=== PATIENT | male | born 1980 | race Caucasian/White ===

== ENCOUNTER 2020-10-25 19:13 | Emergency (ER) | payer SELFPAY ==
[~2020-10-25] VITALS: Ht 199 cm; Wt 182.7 kg
[2020-10-25 20:22] LABS: BASOPHILS % (AUTO) 1 % (0-10); EOSINOPHILS % (AUTO) 3 % (0-10); HEMATOCRIT 37 % (40-54); HEMOGLOBIN 12.7 G/DL (13.3-17.7); LYMPHOCYTES % (AUTO) 20 % (12-44); MEAN CORPUSCULAR HEMOGLOBIN 30 PG (25-34); MEAN CORPUSCULAR HGB CONC 34 G/DL (32-36); MEAN CORPUSCULAR VOLUME 87 FL (80-99); MEAN PLATELET VOLUME 11.6 FL (7.4-10.4); MONOCYTES % (AUTO) 9 % (0-12); NEUTROPHILS # (AUTO) 6.2 X 10^3 (1.8-7.8); NEUTROPHILS % (AUTO) 67 % (42-75); PLATELET COUNT 259 10^3/uL (130-400); WHITE BLOOD COUNT 9.3 10^3/uL (4.3-11.0)
[2020-10-25 20:23] LABS: BASOPHILS # (AUTO) 0.1 10^3/uL (0.0-0.1); EOSINOPHILS # (AUTO) 0.3 10^3/uL (0.0-0.3); LYMPHOCYTES # (AUTO) 1.9 X 10^3 (1.0-4.0); MONOCYTES # (AUTO) 0.8 X 10^3 (0.0-1.0)
[2020-10-25 20:34] LABS: POTASSIUM 4.8 MMOL/L (3.6-5.0)
[2020-10-25 20:35] LABS: ALBUMIN 3.1 GM/DL (3.2-4.5); BILIRUBIN,TOTAL 0.2 MG/DL (0.1-1.0); CALCIUM 9.5 MG/DL (8.5-10.1); CREATININE SERUM 1.46 MG/DL (0.60-1.30)
[2020-10-25 20:40] LABS: ERYTHROCYTE SEDIMENTATION RATE 79 MM/HR (0-15)
[2020-10-25 21:38] LABS: EOSINOPHILS % (MANUAL) 5 %; LYMPHOCYTES % (MANUAL) 20 %; MONOCYTES % (MANUAL) 3 %; NEUTROPHILS % (MANUAL) 72 %
[2020-10-25] MEDS ORDERED: AUGMENTIN 875 MG TAB (AMOXICILLIN/CLAVULANATE) PO ONE (22:00)
--- NOTE | 2020-10-25 22:04 | ED Lower Extremity ---
General Chief Complaint: Lower Extremity Stated Complaint: RT FOOT PAIN/SWELLING Nursing Triage Note: pt states back at the end of august he stepped on something, thinks it may have have been a nail, with his right great toe and has been swollen since. pt went to urgent care and had xrays performed Nursing Sepsis Screen: No Definite Risk Source: patient Exam Limitations: no limitations History of Present Illness Date Seen by Provider: Oct 25, 2020 Time Seen by Provider: 19:00 Initial Comments currently unmedicated who presents with right great toe foot ulcer with cellulitis for the past 2 months. Patient recently relocated from [place] and is currently without primary care. He was evaluated at [facility] prior to ED ED arrival and had an x-ray obtained. He was referred to ED for additional evaluation. Patient does not have fever chills, nausea vomiting or sweats. He is not dizzy or lightheaded. He has not been on any antibiotics or sought medical evaluation for his current issues. He does have a new patient appointment in 3 days with a PCP locally. Onset: other Pain/Injury Location: right 1st toe Method of Injury: other Modifying Factors: Improves With Other Allergies and Home Medications Allergies Coded Allergies: No Known Drug Allergies (Unverified , 10/25/20) Patient Home Medication List Home Medication List Reviewed: Yes Review of Systems Constitutional: see HPI EENTM: see HPI Respiratory: see HPI Cardiovascular: see HPI Gastrointestinal: see HPI Genitourinary: see HPI Musculoskeletal: see HPI Skin: see HPI Psychiatric/Neurological: See HPI All Other Systems Reviewed Negative Unless Noted: Yes Past Cstgszi-Nrivrc-Yspmsb Hx Past Med/Social Hx: Reviewed Nursing Past Med/Soc Hx Patient Social History Alcohol Use: Denies Use Smoking Status: Never a Smoker 2nd Hand Smoke Exposure: No Recent Infectious Disease Expo: No Recent Hopitalizations: No Seasonal Allergies Seasonal Allergies: No Past Medical History Surgeries: Yes Orthopedic Respiratory: No Cardiac: No Neurological: No Genitourinary: No Gastrointestinal: No Musculoskeletal: No Endocrine: No HEENT: No Cancer: No Psychosocial: No Integumentary: No Blood Disorders: No Physical Exam Vital Signs Vital Signs - First Documented 10/25/20 19:27 Temp 36.0 Pulse 96 Resp 18 B/P (MAP) 192/98 (129) Pulse Ox 97 O2 Delivery Room Air Capillary Refill : Less Than 3 Seconds Height, Weight, BMI Height: '" Weight: lbs. oz. kg; 46.00 BMI Method: General Appearance: WD/WN HEENT: PERRL/EOMI, normal ENT inspection Neck: normal inspection Cardiovascular: normal peripheral pulses, regular rate, rhythm Respiratory: chest non-tender, lungs clear, normal breath sounds Gastrointestinal: non tender, soft Hips: bilateral hip normal inspection Legs: bilateral leg normal inspection Knees: bilateral knee normal inspection Feet: right foot soft tissue tenderness (Right great toe pad ulcer with desquamation and waxy skin of the distal third of toe with cellulitis extending to proximal toe with min forefoot swelling and tenderness on exam.), right foot swelling Progress/Results/Core Measures Results/Orders Lab Results Laboratory Tests Test 10/25/20 20:10 Range/Units White Blood Count 9.3 4.3-11.0 10^3/uL Red Blood Count 4.29 L 4.35-5.85 10^6/uL Hemoglobin 12.7 L 13.3-17.7 G/DL Hematocrit 37 L 40-54 % Mean Corpuscular Volume 87 80-99 FL Mean Corpuscular Hemoglobin 30 25-34 PG Mean Corpuscular Hemoglobin Concent 34 32-36 G/DL Red Cell Distribution Width 12.7 10.0-14.5 % Platelet Count 259 130-400 10^3/uL Mean Platelet Volume 11.6 H 7.4-10.4 FL Immature Granulocyte % (Auto) 0 % Neutrophils (%) (Auto) 67 42-75 % Lymphocytes (%) (Auto) 20 12-44 % Monocytes (%) (Auto) 9 0-12 % Eosinophils (%) (Auto) 3 0-10 % Basophils (%) (Auto) 1 0-10 % Neutrophils # (Auto) 6.2 1.8-7.8 X 10^3 Lymphocytes # (Auto) 1.9 1.0-4.0 X 10^3 Monocytes # (Auto) 0.8 0.0-1.0 X 10^3 Eosinophils # (Auto) 0.3 0.0-0.3 10^3/uL Basophils # (Auto) 0.1 0.0-0.1 10^3/uL Immature Granulocyte # (Auto) 0.0 0.0-0.1 10^3/uL Neutrophils % (Manual) 72 % Lymphocytes % (Manual) 20 % Monocytes % (Manual) 3 % Eosinophils % (Manual) 5 % Erythrocyte Sedimentation Rate 79 H 0-15 MM/HR Sodium Level 135 135-145 MMOL/L Potassium Level 4.8 3.6-5.0 MMOL/L Chloride Level 101 98-107 MMOL/L Carbon Dioxide Level 27 21-32 MMOL/L Anion Gap 7 5-14 MMOL/L Blood Urea Nitrogen 27 H 7-18 MG/DL Creatinine 1.46 H 0.60-1.30 MG/DL Estimat Glomerular Filtration Rate 53 BUN/Creatinine Ratio 18 Glucose Level 396 H 70-105 MG/DL Calcium Level 9.5 8.5-10.1 MG/DL Corrected Calcium 10.2 H 8.5-10.1 MG/DL Total Bilirubin 0.2 0.1-1.0 MG/DL Aspartate Amino Transf (AST/SGOT) 12 5-34 U/L Alanine Aminotransferase (ALT/SGPT) 19 0-55 U/L Alkaline Phosphatase 124 40-136 U/L C-Reactive Protein 3.51 H <0.50 MG/DL Total Protein 7.0 6.4-8.2 GM/DL Albumin 3.1 L 3.2-4.5 GM/DL My Orders Orders - THOMAS OGDEN DO Cbc And Manual Diff (10/25/20 20:03) Comprehensive Metabolic Panel (10/25/20 20:03) Erythrocyte Sedimentation Rate (10/25/20 20:03) Hs C Reactive Protein (10/25/20 20:10) Crp Fs (10/25/20 20:10) Vital Signs/I&O 10/25/20 19:27 Temp 36.0 Pulse 96 Resp 18 B/P (MAP) 192/98 (129) Pulse Ox 97 O2 Delivery Room Air Blood Pressure Mean: 129 Departure Communication (Admissions) Right foot/great toe x-ray. Possible early left of right foot distal phalanx Patient's labs reviewed. Longstanding diabetes with noncompliance and chronic right great toe foot infection. First dose of antibiotics given. Will place on antibiotics and start on low-dose Metformin. Patient instructed to follow-up with PCP on Wednesday for reevaluation and further management Impression Primary Impression: Chronic ulcer of right great toe Additional Impressions: Cellulitis of toe of right foot Hyperglycemia H/O medication noncompliance Disposition: HOME, SELF-CARE Condition: Stable Departure-Patient Inst. Decision time for Depature: 22:04 Referrals: NO,LOCAL PHYSICIAN (PCP/Family) Primary Care Physician Patient Instructions: Diabetic Foot Ulcer (DC) Add. Discharge Instructions: Please take newly prescribed medications as directed and follow-up with your PCP to establish as a new primary care patient on Wednesday as scheduled. All discharge instructions reviewed with patient and/or family. Voiced understanding. Scripts Metformin HCl (Metformin HCl) 500 Mg Tablet 500 MG PO BID, #60 TAB Prov: THOMAS OGDEN DO 10/25/20 Amoxicillin/Potassium Clav (Augmentin 875-125 Tablet) 1 Each Tablet 1 EACH PO BID, #30 TAB 0 Refills Prov: THOMAS OGDEN DO 10/25/20 THOMAS OGDEN DO Oct 25, 2020 22:04
[2020-10-25] MEDS ORDERED: METF-397 PO (22:05)
[2020-10-25] MEDS ORDERED: AMOX-358 PO (22:05)
[2020-10-25 22:10] VITALS: BP 192/98
== END 2020-10-25 22:10 | disposition home or self-care (01) ==
LOC: ER FS 19:14
DX: L97.519 Non-pressure chronic ulcer of other part of right foot with unspecified severity (principal); L03.031 Cellulitis of right toe; R73.9 Hyperglycemia, unspecified; Z91.19 Patient's noncompliance with other medical treatment and regimen
CPT/HCPCS: 36415; 80053; 85007; 85027; 85652; 86141

== ENCOUNTER → 2020-11-11 | Outpatient (CLI) | payer OTHER ==
[~2020-11-11] MED LIST: AMOX-358 PO; METF-397 PO
== END ==
LOC: WOUNDCARE 13:26
PROVIDERS: ATTEND Surgery
DX: E11.621 Type 2 diabetes mellitus with foot ulcer (principal); E11.42 Type 2 diabetes mellitus with diabetic polyneuropathy; L97.514 Non-pressure chronic ulcer of other part of right foot with necrosis of bone; M86.471 Chronic osteomyelitis with draining sinus, right ankle and foot; E11.65 Type 2 diabetes mellitus with hyperglycemia
CPT/HCPCS: 11042; 87070; 87077; 87205; G0463

== ENCOUNTER → 2020-11-27 | Outpatient (CLI) | payer OTHER ==
--- NOTE | 2020-11-27 16:58 | Diagnostic Imaging Report ---
EXAMINATION: Right foot at 4:30 p.m. INDICATION: Right foot necrosis. Three views were obtained. There are no prior studies available for comparison. There is an irregular broad fracture line extending through the head and neck of the proximal phalanx of the great toe. This may represent a pathologic fracture secondary to osteomyelitis as much of the distal phalanx of the great toe has been eroded. There is also generalized edema of the soft tissues in this area. There is no fracture or acute bony abnormality noted otherwise. There is moderate degenerative disease of the phalanges and the midfoot. The Lisfranc joint was not well-visualized but appears to be stable. The soft tissues are otherwise unremarkable for an acute abnormality. Vascular calcifications are seen anterior and posterior to the distal tibia and fibula. IMPRESSION: 1. There is bony destruction of the distal phalanx of the great toe and there is a broad irregular fracture line extending through the head and neck of the proximal phalanx of the great toe. These findings are most likely secondary to osteomyelitis. If further imaging is desired, then MRI would be recommended. 2. There is no acute bony abnormality appreciated otherwise. Dictated by: Dictated on workstation # [id number]
== END ==
LOC: RAD FS 16:20
PROVIDERS: ATTEND Surgery
DX: E11.621 Type 2 diabetes mellitus with foot ulcer (principal); L97.514 Non-pressure chronic ulcer of other part of right foot with necrosis of bone; E11.42 Type 2 diabetes mellitus with diabetic polyneuropathy; M86.471 Chronic osteomyelitis with draining sinus, right ankle and foot; E11.65 Type 2 diabetes mellitus with hyperglycemia
CPT/HCPCS: 73630

== ENCOUNTER → 2020-11-28 | Outpatient (CLI) | payer OTHER | LOC: WOUNDCARE 15:24 | PROVIDERS: ATTEND Surgery | DX: E11.621 Type 2 diabetes mellitus with foot ulcer (principal); E11.42 Type 2 diabetes mellitus with diabetic polyneuropathy; I96 Gangrene, not elsewhere classified; L97.514 Non-pressure chronic ulcer of other part of right foot with necrosis of bone; M86.471 Chronic osteomyelitis with draining sinus, right ankle and foot; E11.65 Type 2 diabetes mellitus with hyperglycemia | CPT/HCPCS: 11042; G0463 ==

== ENCOUNTER → 2020-12-05 | Outpatient (CLI) | payer OTHER | LOC: WOUNDCARE 15:22 | PROVIDERS: ATTEND Surgery | DX: E11.621 Type 2 diabetes mellitus with foot ulcer (principal); I96 Gangrene, not elsewhere classified; E11.42 Type 2 diabetes mellitus with diabetic polyneuropathy; L97.514 Non-pressure chronic ulcer of other part of right foot with necrosis of bone; M86.471 Chronic osteomyelitis with draining sinus, right ankle and foot; E11.65 Type 2 diabetes mellitus with hyperglycemia | CPT/HCPCS: 11044; G0463 ==

== ENCOUNTER → 2020-12-12 | Outpatient (CLI) | payer OTHER | LOC: WOUNDCARE 14:15 | PROVIDERS: ATTEND Surgery | DX: E11.621 Type 2 diabetes mellitus with foot ulcer (principal); I96 Gangrene, not elsewhere classified; E11.42 Type 2 diabetes mellitus with diabetic polyneuropathy; M86.471 Chronic osteomyelitis with draining sinus, right ankle and foot; E11.65 Type 2 diabetes mellitus with hyperglycemia; L97.514 Non-pressure chronic ulcer of other part of right foot with necrosis of bone | CPT/HCPCS: 11044; G0463 ==

== ENCOUNTER → 2020-12-24 | Outpatient (CLI) | payer OTHER ==
[2020-12-24 16:21] LABS: BASOPHILS # (AUTO) 0.1 10^3/uL (0.0-0.1); BASOPHILS % (AUTO) 1 % (0-10); EOSINOPHILS # (AUTO) 0.3 10^3/uL (0.0-0.3); EOSINOPHILS % (AUTO) 4 % (0-10); HEMATOCRIT 40 % (40-54); HEMOGLOBIN 13.1 g/dL (13.3-17.7); LYMPHOCYTES # (AUTO) 2.2 10^3/uL (1.0-4.0); LYMPHOCYTES % (AUTO) 29 % (12-44); MEAN CORPUSCULAR HEMOGLOBIN 29 pg (25-34); MEAN CORPUSCULAR HGB CONC 33 g/dL (32-36); MEAN CORPUSCULAR VOLUME 89 fL (80-99); MEAN PLATELET VOLUME 11.7 fL (9.0-12.2); MONOCYTES # (AUTO) 0.6 10^3/uL (0.0-1.0); MONOCYTES % (AUTO) 8 % (0-12); NEUTROPHILS # (AUTO) 4.2 10^3/uL (1.8-7.8); NEUTROPHILS % (AUTO) 57 % (42-75); PLATELET COUNT 238 10^3/uL (130-400); WHITE BLOOD COUNT 7.3 10^3/uL (4.3-11.0)
[2020-12-24 16:40] LABS: ERYTHROCYTE SEDIMENTATION RATE 52 MM/HR (0-15)
--- NOTE | 2020-12-24 17:00 | Diagnostic Imaging Report ---
HISTORY: Osteomyelitis of the right great toe. COMPARISON: 11/27/2020. TECHNIQUE: Frontal view of the right foot. Oblique and lateral views of the right great toe. FINDINGS: There is extensive destruction and erosive change of the right great toe distal phalanx. There is also erosion and pathologic fracturing of the proximal phalangeal head. There is marked soft tissue edema about the great toe with ulceration distally. There is calcific atherosclerosis. IMPRESSION: 1. Radiographic findings of osteomyelitis in the right great toe phalanges with pathologic fracture of the proximal phalangeal head. Dictated by: Dictated on workstation # [id number]
== END ==
LOC: RAD 16:03
PROVIDERS: ATTEND Surgery
DX: M84.477A Pathological fracture, right toe(s), initial encounter for fracture (principal); M86.471 Chronic osteomyelitis with draining sinus, right ankle and foot
CPT/HCPCS: 36415; 73660; 85025; 85652; 86141

== ENCOUNTER → 2020-12-24 | Outpatient (CLI) | payer OTHER | LOC: WOUNDCARE 15:11 | PROVIDERS: ATTEND Surgery | DX: E11.52 Type 2 diabetes mellitus with diabetic peripheral angiopathy with gangrene (principal); E11.621 Type 2 diabetes mellitus with foot ulcer; E11.42 Type 2 diabetes mellitus with diabetic polyneuropathy; E11.65 Type 2 diabetes mellitus with hyperglycemia; I96 Gangrene, not elsewhere classified; L97.512 Non-pressure chronic ulcer of other part of right foot with fat layer exposed; M86.471 Chronic osteomyelitis with draining sinus, right ankle and foot | CPT/HCPCS: 11042; G0463 ==

== ENCOUNTER → 2021-01-02 | Outpatient (CLI) | payer OTHER | LOC: WOUNDCARE 15:09 | PROVIDERS: ATTEND Surgery | DX: E11.621 Type 2 diabetes mellitus with foot ulcer (principal); E11.42 Type 2 diabetes mellitus with diabetic polyneuropathy; L97.512 Non-pressure chronic ulcer of other part of right foot with fat layer exposed; M86.471 Chronic osteomyelitis with draining sinus, right ankle and foot; E11.65 Type 2 diabetes mellitus with hyperglycemia; E11.52 Type 2 diabetes mellitus with diabetic peripheral angiopathy with gangrene | CPT/HCPCS: 11042; G0463 ==

== ENCOUNTER → 2021-01-09 | Outpatient (CLI) | payer OTHER | LOC: WOUNDCARE 13:56 | PROVIDERS: ATTEND Surgery | DX: E11.621 Type 2 diabetes mellitus with foot ulcer (principal); E11.42 Type 2 diabetes mellitus with diabetic polyneuropathy; L97.512 Non-pressure chronic ulcer of other part of right foot with fat layer exposed; M86.471 Chronic osteomyelitis with draining sinus, right ankle and foot; E11.65 Type 2 diabetes mellitus with hyperglycemia; E11.52 Type 2 diabetes mellitus with diabetic peripheral angiopathy with gangrene | CPT/HCPCS: 11042; G0463 ==

== ENCOUNTER → 2021-01-23 | Outpatient (CLI) | payer OTHER | LOC: WOUNDCARE 14:22 | PROVIDERS: ATTEND Surgery | DX: E11.621 Type 2 diabetes mellitus with foot ulcer (principal); I96 Gangrene, not elsewhere classified; E11.42 Type 2 diabetes mellitus with diabetic polyneuropathy; L97.512 Non-pressure chronic ulcer of other part of right foot with fat layer exposed; M86.471 Chronic osteomyelitis with draining sinus, right ankle and foot; E11.65 Type 2 diabetes mellitus with hyperglycemia | CPT/HCPCS: 11042; G0463 ==

== ENCOUNTER → 2021-01-30 | Outpatient (CLI) | payer OTHER | LOC: WOUNDCARE 15:25 | PROVIDERS: ATTEND Surgery | DX: E11.621 Type 2 diabetes mellitus with foot ulcer (principal); E11.42 Type 2 diabetes mellitus with diabetic polyneuropathy; L97.514 Non-pressure chronic ulcer of other part of right foot with necrosis of bone; E11.65 Type 2 diabetes mellitus with hyperglycemia; M86.471 Chronic osteomyelitis with draining sinus, right ankle and foot; E11.52 Type 2 diabetes mellitus with diabetic peripheral angiopathy with gangrene | CPT/HCPCS: 11044; G0463 ==

== ENCOUNTER → 2021-02-12 | Outpatient (CLI) | payer OTHER | LOC: WOUNDCARE 15:21 | PROVIDERS: ATTEND Surgery | DX: E11.621 Type 2 diabetes mellitus with foot ulcer (principal); I96 Gangrene, not elsewhere classified; E11.42 Type 2 diabetes mellitus with diabetic polyneuropathy; E11.65 Type 2 diabetes mellitus with hyperglycemia; L97.514 Non-pressure chronic ulcer of other part of right foot with necrosis of bone; M86.471 Chronic osteomyelitis with draining sinus, right ankle and foot | CPT/HCPCS: 11044; G0463 ==

== ENCOUNTER → 2021-02-12 | Outpatient (CLI) | payer OTHER ==
[2021-02-12 16:59] LABS: BASOPHILS # (AUTO) 0.1 10^3/uL (0.0-0.1); BASOPHILS % (AUTO) 1 % (0-10); EOSINOPHILS # (AUTO) 0.3 10^3/uL (0.0-0.3); EOSINOPHILS % (AUTO) 4 % (0-10); HEMATOCRIT 38 % (40-54); HEMOGLOBIN 12.8 g/dL (13.3-17.7); LYMPHOCYTES # (AUTO) 1.9 10^3/uL (1.0-4.0); LYMPHOCYTES % (AUTO) 24 % (12-44); MEAN CORPUSCULAR HEMOGLOBIN 29 pg (25-34); MEAN CORPUSCULAR HGB CONC 34 g/dL (32-36); MEAN CORPUSCULAR VOLUME 86 fL (80-99); MEAN PLATELET VOLUME 11.8 fL (9.0-12.2); MONOCYTES # (AUTO) 0.6 10^3/uL (0.0-1.0); MONOCYTES % (AUTO) 7 % (0-12); NEUTROPHILS % (AUTO) 64 % (42-75); PLATELET COUNT 239 10^3/uL (130-400); WHITE BLOOD COUNT 7.8 10^3/uL (4.3-11.0)
[2021-02-12 17:10] LABS: ALBUMIN 3.3 GM/DL (3.2-4.5)
[2021-02-12 17:11] LABS: POTASSIUM 4.8 MMOL/L (3.6-5.0)
[2021-02-12 17:12] LABS: CALCIUM 9.3 MG/DL (8.5-10.1)
[2021-02-12 17:13] LABS: TOTAL PROTEIN 6.8 GM/DL (6.4-8.2)
[2021-02-12 17:15] LABS: BILIRUBIN,TOTAL 0.3 MG/DL (0.1-1.0)
[2021-02-12 17:17] LABS: CREATININE SERUM 1.66 MG/DL (0.60-1.30)
== END ==
LOC: LAB 16:32
PROVIDERS: ATTEND Surgery
DX: E11.621 Type 2 diabetes mellitus with foot ulcer (principal); E11.42 Type 2 diabetes mellitus with diabetic polyneuropathy; L97.514 Non-pressure chronic ulcer of other part of right foot with necrosis of bone; M86.471 Chronic osteomyelitis with draining sinus, right ankle and foot; E11.65 Type 2 diabetes mellitus with hyperglycemia
CPT/HCPCS: 36415; 80053; 83036; 85025

== ENCOUNTER → 2021-03-04 | Outpatient (CLI) | payer OTHER | LOC: WOUNDCARE 14:14 | PROVIDERS: ATTEND Surgery | DX: E11.621 Type 2 diabetes mellitus with foot ulcer (principal); E11.42 Type 2 diabetes mellitus with diabetic polyneuropathy; L97.514 Non-pressure chronic ulcer of other part of right foot with necrosis of bone; M86.471 Chronic osteomyelitis with draining sinus, right ankle and foot; E11.65 Type 2 diabetes mellitus with hyperglycemia; E11.22 Type 2 diabetes mellitus with diabetic chronic kidney disease; N18.31 Chronic kidney disease, stage 3a; E11.52 Type 2 diabetes mellitus with diabetic peripheral angiopathy with gangrene | CPT/HCPCS: 11042; G0463 ==